=== PATIENT | male | born 1970 | race Caucasian/White ===

== ENCOUNTER 2020-02-24 15:13 | Inpatient (IN) | payer MEDICAID ==
[~2020-02-24] VITALS: Ht 193 cm; Wt 114.0 kg
[2020-02-24] MEDS ORDERED: CefTRIAXone 2gm/D5W 50ml 50 ML IV ONE (15:50)
[2020-02-24] MEDS ORDERED: vancomycin/NS 1 GM ADD-VANTAGE 250 ML IV ONE (16:00)
[2020-02-24 16:20] LABS: BASOPHILS # (AUTO) 0.1 X10'3 (0-0.2); BASOPHILS % (AUTO) 0.9 % (0-1); EOSINOPHILS % (AUTO) 0.2 % (0-6); HEMATOCRIT 44.2 % (42.0-52.0); LYMPHOCYTES # (AUTO) 1.4 X10'3 (1.1-4.8); LYMPHOCYTES % (AUTO) 15.4 % (21-51); MEAN CORPUSCULAR HEMOGLOBIN 31.9 PG (27.0-31.0); MEAN CORPUSCULAR VOLUME 93.8 FL (78-98); MEAN PLATELET VOLUME 10.9 FL (7.4-10.4); MONOCYTES # (AUTO) 1.3 X10'3 (0-0.9); MONOCYTES % (AUTO) 14.1 % (2-12); NEUTROPHILS # (AUTO) 6.2 X10'3 (1.8-7.7); NEUTROPHILS % (AUTO) 69.4 % (42-75); PLATELET COUNT 132 X10'3 (140-440); RED BLOOD COUNT 4.72 X10'6 (4.70-6.10); RED CELL DISTRIBUTION WIDTH 13.4 % (11.5-14.5)
[2020-02-24 16:35] LABS: ALANINE AMINOTRANSFERASE 12 U/L (12-78); ALBUMIN 3.9 G/DL (3.4-5.0); ALKALINE PHOSPHATASE 55 IU/L (46-116); ANION GAP 9 (8-16); ASPARTATE AMINO TRANSFERASE 17 U/L (10-37); BILIRUBIN,TOTAL 0.6 MG/DL (0.1-1.0); BLOOD UREA NITROGEN 11 MG/DL (7-18); BUN/CREATININE RATIO 10.5 (5.4-32.0); C-REACTIVE PROTEIN 1.83 MG/DL (0.0-0.5); CALCIUM 9.5 MG/DL (8.5-10.1); CHLORIDE 102 MMOL/L (99-107); CREATININE 1.05 MG/DL (0.60-1.10); GLUCOSE 133 MG/DL (70-104); SODIUM 138 MMOL/L (135-145); TOTAL CARBON DIOXIDE 27.2 MMOL/L (24-32); TOTAL PROTEIN 7.8 G/DL (6.4-8.2); eGFR 75 ML/MIN
[2020-02-24 16:55] LABS: LARGE PLATELETS FEW; PLATELET ESTIMATE DECREASED
[2020-02-24] MEDS ORDERED: LEVO137T2 PO (17:09)
[2020-02-24] MEDS ORDERED: GABA-532 PO ×3 (17:09)
[2020-02-24] MEDS ORDERED: DIVA-37 PO (17:09)
[2020-02-24] MEDS ORDERED: DIVA-76 PO (17:09)
[2020-02-24] MEDS ORDERED: METF-950 PO (17:09)
[2020-02-24] MEDS ORDERED: BUSP15TA3 PO (17:09)
[2020-02-24] MEDS ORDERED: ATOR20TA66 PO (17:09)
[2020-02-24] MEDS ORDERED: PALI6TAB6 PO (17:09)
[2020-02-24] MEDS ORDERED: insulin Lispro (HumaLOG) vial - multi-dose SQ SCH (17:55)
[2020-02-24] MEDS ORDERED: HYDROcodone/acetaminophen 5mg/325mg tablet PO PRN (17:55)
[2020-02-24] MEDS ORDERED: levoFLOXACIN 750MG TABLET PO ONE (17:55)
[2020-02-24] MEDS ORDERED: acetaminophen 325mg tablet PO PRN ×2 (17:55)
[2020-02-24] MEDS ORDERED: MESSAGE TO PHARMACY PO ONE (17:55)
[2020-02-24] MEDS ORDERED: HYDROcodone/acetaminophen 10/325mg tab PO PRN (17:55)
[2020-02-24] MEDS ORDERED: ondansetron/PF 4mg/2ml inj IV PRN (17:55)
[2020-02-24] MEDS ORDERED: dextrose ORAL solution 15 GM/59 ML bottle PO PRN ×2 (17:55)
[2020-02-24] MEDS ORDERED: potassium CL 10mEq/100ml bag 100 ML IV PRN ×2 (17:55)
[2020-02-24] MEDS ORDERED: magnesium 4gm in 100ml NS 100 ML IV PRN (17:55)
[2020-02-24] MEDS ORDERED: magnesium 2GM in 50ml NS 50 ML IV PRN (17:55)
[2020-02-24] MEDS ORDERED: glucagon, human recombinant 1mg kit SUBCUT PRN (17:55)
[2020-02-24] MEDS ORDERED: magnesium hydroxide 30ml (MOM) UD suspension PO PRN (17:55)
[2020-02-24] MEDS ORDERED: potassium Cl 20 mEq SR tablet PO PRN ×2 (17:55)
[2020-02-24] MEDS ORDERED: mag hydrox/Alum hydrox/simeth 30ml oral suspension PO PRN (17:55)
[2020-02-24] MEDS ORDERED: dextrose 50%-water 50ml dispensing syringe IV PRN ×2 (17:55)
--- NOTE | 2020-02-24 18:45 | NUR ---
Received report from Papo MENDEZ, patient came up to floor via wheelchair. Bed locked & low, call light within reach.
[2020-02-24 18:55] VITALS: BP 147/86
[2020-02-24] MEDS: nicotine 14mg patch - 24hr TD SCH (19:10)
[2020-02-24] MEDS: normal saline 1000ml 1,000 ML IV SCH (19:11)
--- NOTE | 2020-02-24 19:31 | NUR ---
Problems reprioritized. Patient report given, questions answered & plan of care reviewed with Prudence RN.
[2020-02-24] MEDS: K and/or MAG REPLACEMENT MC SCH (19:38)
[2020-02-24] MEDS: divalproex sodium 500mg tablet.DR PO SCH (20:14)
[2020-02-24] MEDS: gabapentin 300mg capsule PO SCH (20:15)
[2020-02-24] MEDS: busPIRone 15mg tablet PO SCH (20:15)
[2020-02-24] MEDS: atorvastatin 20mg tablet PO SCH (20:15)
[2020-02-24] MEDS: insulin glargine (Lantus) pen - multi-dose SQ SCH (21:00)
[2020-02-24 22:19] VITALS: BP 119/75
[2020-02-25] MEDS: VANCOMYCIN 1,500MG inj. 1,500 MG in normal saline 500ml IV soln 500 ML IV SCH ×3 (00:51→17:17)
[2020-02-25] MEDS: heparin, porcine 5000 units/ml vial SQ SCH ×3 (00:52→15:58)
[2020-02-25] MEDS: normal saline 1000ml 1,000 ML IV SCH ×2 (03:33→15:17)
[2020-02-25 05:13] LABS: BASOPHILS % (AUTO) 0.5 % (0-1); EOSINOPHILS % (AUTO) 0.5 % (0-6); HEMOGLOBIN 13.6 g/dl (14.0-17.9); LYMPHOCYTES # (AUTO) 2.1 X10'3 (1.1-4.8); LYMPHOCYTES % (AUTO) 32.1 % (21-51); MEAN CORPUSCULAR HEMOGLOBIN 31.5 PG (27.0-31.0); MEAN CORPUSCULAR HGB CONC 33.3 g/dL (33.0-36.5); MEAN CORPUSCULAR VOLUME 94.6 FL (78-98); MEAN PLATELET VOLUME 11.5 FL (7.4-10.4); MONOCYTES # (AUTO) 0.9 X10'3 (0-0.9); MONOCYTES % (AUTO) 12.8 % (2-12); NEUTROPHILS # (AUTO) 3.6 X10'3 (1.8-7.7); NEUTROPHILS % (AUTO) 54.1 % (42-75); PLATELET COUNT 125 X10'3 (140-440); RED BLOOD COUNT 4.33 X10'6 (4.70-6.10); RED CELL DISTRIBUTION WIDTH 13.7 % (11.5-14.5); WHITE BLOOD COUNT 6.7 X10'3 (4.5-11.0)
[2020-02-25 05:14] LABS: ALANINE AMINOTRANSFERASE 12 U/L (12-78); ALBUMIN/GLOBULIN RATIO 0.8 (1.1-1.5); ALKALINE PHOSPHATASE 47 IU/L (46-116); ANION GAP 6 (8-16); ASPARTATE AMINO TRANSFERASE 18 U/L (10-37); BILIRUBIN,TOTAL 0.7 MG/DL (0.1-1.0); BLOOD UREA NITROGEN 11 MG/DL (7-18); BUN/CREATININE RATIO 10.1 (5.4-32.0); CALCIUM 9.1 MG/DL (8.5-10.1); CHLORIDE 107 MMOL/L (99-107); CREATININE 1.09 MG/DL (0.60-1.10); GLUCOSE 100 MG/DL (70-104); MAGNESIUM 1.8 MG/DL (1.5-2.4); POTASSIUM 4.2 MMOL/L (3.5-5.1); SODIUM 142 MMOL/L (135-145); TOTAL CARBON DIOXIDE 28.7 MMOL/L (24-32); TOTAL PROTEIN 6.6 G/DL (6.4-8.2); eGFR 72 ML/MIN
[2020-02-25 06:00] VITALS: BP 135/77
--- NOTE | 2020-02-25 06:11 | NUR ---
Problems reprioritized. Patient report given, questions answered & plan of care reviewed with Cathie MENDEZ and Madhavi MENDEZ.
--- NOTE | 2020-02-25 06:32 | NUR ---
Patient in room [facility]TH[facility] 4011. I have received report from Verna Hernandez and had the opportunity to ask questions and assume patient care.
[2020-02-25 06:54] LABS: LARGE PLATELETS FEW; PLATELET ESTIMATE DECREASED
[2020-02-25] MEDS ORDERED: levoTHYROXINE 125mcg tablet PO SCH ×2 (07:00)
[2020-02-25] MEDS: levoTHYROXINE 25mcg tablet PO SCH (07:45)
[2020-02-25] MEDS: divalproex sodium 500mg tablet.DR PO SCH ×2 (07:45→20:37)
[2020-02-25] MEDS: levoTHYROXINE 112mcg tablet PO SCH (07:45)
[2020-02-25] MEDS: busPIRone 15mg tablet PO SCH ×3 (07:46→20:38)
[2020-02-25] MEDS: gabapentin 300mg capsule PO SCH ×3 (07:46→20:39)
[2020-02-25] MEDS: nicotine 14mg patch - 24hr TD SCH (07:47)
[2020-02-25] MEDS: K and/or MAG REPLACEMENT MC SCH ×2 (08:00→20:00)
[2020-02-25] MEDS ORDERED: CefTRIAXone 2gm/D5W 50ml 50 ML IV SCH (08:00)
[2020-02-25] MEDS: PALIPERIDONE 3 MG TAB.ER.24 PO SCH (08:42)
[2020-02-25 10:00] VITALS: BP 119/74
[2020-02-25] MEDS ORDERED: levoFLOXACIN 750MG TABLET PO SCH (11:00)
[2020-02-25] MEDS: piperacillin/tazo 3.375gm/50ml 50 ML IV SCH (15:09)
--- NOTE | 2020-02-25 18:00 | NUR ---
RECEIVED REPORT FROM KEIRY MENDEZ AND ASSUMED PATIENT CARE
--- NOTE | 2020-02-25 18:00 | NUR ---
Patient in room ORTH[facility] 4011. I have received report from Elke MENDEZ & Zeenat MENDEZ and had the opportunity to ask questions and assume patient care.
--- NOTE | 2020-02-25 18:19 | NUR ---
Problems reprioritized. Patient report given, questions answered & plan of care reviewed with Aparna Elena RN.
[2020-02-25 19:28] VITALS: BP 124/82
[2020-02-25] MEDS: atorvastatin 20mg tablet PO SCH (20:38)
[2020-02-25] MEDS: insulin glargine (Lantus) pen - multi-dose SQ SCH (21:00)
[2020-02-26] MEDS: piperacillin/tazo 3.375gm/50ml 50 ML IV SCH ×2 (00:14→07:34)
[2020-02-26] MEDS: heparin, porcine 5000 units/ml vial SQ SCH ×2 (00:15→07:25)
[2020-02-26] MEDS ORDERED: VANCOMYCIN LEVEL IV ONE (00:30)
[2020-02-26 01:12] VITALS: BP 127/78
[2020-02-26 04:18] LABS: ALANINE AMINOTRANSFERASE 8 U/L (12-78); ALBUMIN 3.2 G/DL (3.4-5.0); ALBUMIN/GLOBULIN RATIO 0.9 (1.1-1.5); ALKALINE PHOSPHATASE 48 IU/L (46-116); ANION GAP 8 (8-16); ASPARTATE AMINO TRANSFERASE 24 U/L (10-37); BILIRUBIN,TOTAL 0.5 MG/DL (0.1-1.0); BLOOD UREA NITROGEN 12 MG/DL (7-18); BUN/CREATININE RATIO 11.7 (5.4-32.0); CALCIUM 9.2 MG/DL (8.5-10.1); CHLORIDE 108 MMOL/L (99-107); CREATININE 1.03 MG/DL (0.60-1.10); GLUCOSE 90 MG/DL (70-104); MAGNESIUM 1.8 MG/DL (1.5-2.4); POTASSIUM 3.8 MMOL/L (3.5-5.1); SODIUM 141 MMOL/L (135-145); TOTAL CARBON DIOXIDE 25.3 MMOL/L (24-32); TOTAL PROTEIN 6.8 G/DL (6.4-8.2); VANCOMYCIN,TROUGH 17.2 UG/ML (6.0-14.0); eGFR 77 ML/MIN
[2020-02-26] MEDS: VANCOMYCIN 1,500MG inj. 1,500 MG in normal saline 500ml IV soln 500 ML IV SCH ×2 (04:29→11:40)
[2020-02-26 06:00] VITALS: BP 136/77
--- NOTE | 2020-02-26 06:28 | NUR ---
Patient in room [facility]TH[facility] 4011. I have received report from Cornel MENDEZ and had the opportunity to ask questions and assume patient care.
[2020-02-26 06:57] LABS: BASOPHILS % (AUTO) 0.5 % (0-1); EOSINOPHILS % (AUTO) 0.9 % (0-6); HEMATOCRIT 41.6 % (42.0-52.0); HEMOGLOBIN 14.1 g/dl (14.0-17.9); LYMPHOCYTES # (AUTO) 1.5 X10'3 (1.1-4.8); LYMPHOCYTES % (AUTO) 35.9 % (21-51); MEAN CORPUSCULAR HEMOGLOBIN 31.9 PG (27.0-31.0); MEAN CORPUSCULAR HGB CONC 33.9 g/dL (33.0-36.5); MEAN CORPUSCULAR VOLUME 94.1 FL (78-98); MEAN PLATELET VOLUME 11.6 FL (7.4-10.4); MONOCYTES # (AUTO) 0.6 X10'3 (0-0.9); MONOCYTES % (AUTO) 12.9 % (2-12); NEUTROPHILS # (AUTO) 2.1 X10'3 (1.8-7.7); NEUTROPHILS % (AUTO) 49.8 % (42-75); PLATELET COUNT 116 X10'3 (140-440); RED BLOOD COUNT 4.42 X10'6 (4.70-6.10); RED CELL DISTRIBUTION WIDTH 13.7 % (11.5-14.5); WHITE BLOOD COUNT 4.3 X10'3 (4.5-11.0)
[2020-02-26] MEDS: normal saline 1000ml 1,000 ML IV SCH (07:02)
[2020-02-26] MEDS: gabapentin 300mg capsule PO SCH ×2 (07:25→12:57)
[2020-02-26] MEDS: levoTHYROXINE 25mcg tablet PO SCH (07:25)
[2020-02-26] MEDS: divalproex sodium 500mg tablet.DR PO SCH (07:26)
[2020-02-26] MEDS: PALIPERIDONE 3 MG TAB.ER.24 PO SCH (07:26)
[2020-02-26] MEDS: levoTHYROXINE 112mcg tablet PO SCH (07:26)
[2020-02-26] MEDS: busPIRone 15mg tablet PO SCH (07:26)
[2020-02-26] MEDS: nicotine 14mg patch - 24hr TD SCH (07:27)
[2020-02-26] MEDS: K and/or MAG REPLACEMENT MC SCH (08:00)
[2020-02-26] MEDS ORDERED: GADOTERATE MEGLUMINE 7.5 MMOL/15 ML VIAL IV ONE (08:46)
[2020-02-26 10:00] VITALS: BP 136/84
[2020-02-26] MEDS ORDERED: LINE600T12 PO (10:41)
--- NOTE | 2020-02-26 12:07 | NUR ---
Patient blood sugar 78 gave orange juice will re check
--- NOTE | 2020-02-26 15:08 | NUR ---
Written and verbal instruction given to patient and caregiver/ regarding interactions between new RX Zyvox and patients routine home med buspar. Patient was instructed to discontinue buspar until zyvox regimen is complete. Addendum: 02/26/20 at 1511 by Manuel Bishop RN Amended: Links added.
== END 2020-02-26 14:30 | disposition home or self-care (01) | DRG 384 ==
LOC: ER 15:14 → ED HOLD 17:51 → UNDOADMIN 17:57 → ED HOLD 17:57 → EDBEDREQ 18:37 → ED HOLD 18:53 → ORTHO 4S 18:53
PROVIDERS: ADMIT Family Medicine; ATTEND Family Medicine
PROC: 0HCNXZZ Extirpation of Matter from Left Foot Skin, External Approach (ICD-10-PCS; principal; 2020-02-24)
PROC: BQ3MYZZ Magnetic Resonance Imaging (MRI) of Left Foot using Other Contrast (ICD-10-PCS; 2020-02-24)
DX: S91.122A Laceration with foreign body of left great toe without damage to nail, initial encounter (principal); E11.42 Type 2 diabetes mellitus with diabetic polyneuropathy; L03.032 Cellulitis of left toe; E03.9 Hypothyroidism, unspecified; W25.XXXA Contact with sharp glass, initial encounter; E78.5 Hyperlipidemia, unspecified; L03.116 Cellulitis of left lower limb; F17.210 Nicotine dependence, cigarettes, uncomplicated; Z87.820 Personal history of traumatic brain injury; Z79.899 Other long term (current) drug therapy; Y93.89 Activity, other specified; Y92.89 Other specified places as the place of occurrence of the external cause; Y99.8 Other external cause status
CPT/HCPCS: 36415; 73660; 73720; 80053; 80202; 82948; 83036; 83605; 83735; 85025; 85651; 86140; 87040; 87081; 96365; 99285; A9575; G0378; J0696; J1644; J1815; J2543; J3370; J7030; J7040

== ENCOUNTER 2020-02-29 11:20 | Outpatient (CLI) | payer MEDICAID ==
[~2020-02-29 11:20] MED LIST: ATOR20TA66 PO; DIVA-37 PO; DIVA-76 PO; GABA-532 PO; LEVO137T2 PO; LINE600T12 PO; METF-950 PO; PALI6TAB6 PO
== END 2020-02-29 12:24 | disposition home or self-care (01) ==
LOC: WOUND CARE 11:20
PROVIDERS: ATTEND Nurse Practitioner
DX: E11.621 Type 2 diabetes mellitus with foot ulcer (principal); L97.521 Non-pressure chronic ulcer of other part of left foot limited to breakdown of skin; E11.51 Type 2 diabetes mellitus with diabetic peripheral angiopathy without gangrene; E11.42 Type 2 diabetes mellitus with diabetic polyneuropathy; E78.5 Hyperlipidemia, unspecified; E07.9 Disorder of thyroid, unspecified; E03.9 Hypothyroidism, unspecified; F17.229 Nicotine dependence, chewing tobacco, with unspecified nicotine-induced disorders; F32.9 Major depressive disorder, single episode, unspecified; Z79.899 Other long term (current) drug therapy
CPT/HCPCS: 36416; 82948; G0463

== ENCOUNTER 2020-03-05 09:00 | Outpatient (CLI) | payer MEDICAID ==
[2020-03-05] MEDS ORDERED: LIDOcaine 2% 5ml jelly ONE (09:20)
== END 2020-03-05 10:29 | disposition home or self-care (01) ==
LOC: WOUND CARE 09:00 → EDSTATUS 09:00 → WOUND CARE 10:29
PROVIDERS: ATTEND Nurse Practitioner Family
DX: E11.621 Type 2 diabetes mellitus with foot ulcer (principal); L97.521 Non-pressure chronic ulcer of other part of left foot limited to breakdown of skin; E11.51 Type 2 diabetes mellitus with diabetic peripheral angiopathy without gangrene; E11.42 Type 2 diabetes mellitus with diabetic polyneuropathy; E78.5 Hyperlipidemia, unspecified; E07.9 Disorder of thyroid, unspecified; E03.9 Hypothyroidism, unspecified; F32.9 Major depressive disorder, single episode, unspecified; F17.290 Nicotine dependence, other tobacco product, uncomplicated; Z79.899 Other long term (current) drug therapy
CPT/HCPCS: 82948; 93922; 93925; G0463

== ENCOUNTER 2020-03-08 09:05 | Day surgery (SDC) | payer MEDICAID | END 2020-03-08 09:43 | disposition home or self-care (01) | LOC: WOUND CARE 09:05 | PROVIDERS: ATTEND Nurse Practitioner | DX: E11.621 Type 2 diabetes mellitus with foot ulcer (principal); L97.522 Non-pressure chronic ulcer of other part of left foot with fat layer exposed; E11.51 Type 2 diabetes mellitus with diabetic peripheral angiopathy without gangrene; E11.42 Type 2 diabetes mellitus with diabetic polyneuropathy; E78.5 Hyperlipidemia, unspecified; E07.9 Disorder of thyroid, unspecified; E03.9 Hypothyroidism, unspecified; F32.9 Major depressive disorder, single episode, unspecified; F17.290 Nicotine dependence, other tobacco product, uncomplicated; Z79.899 Other long term (current) drug therapy | CPT/HCPCS: 36416; 82948; 97597 ==

== ENCOUNTER 2020-03-15 09:16 | Day surgery (SDC) | payer MEDICAID | END 2020-03-15 09:57 | disposition home or self-care (01) | LOC: WOUND CARE 09:16 | PROVIDERS: ATTEND Nurse Practitioner | DX: E11.621 Type 2 diabetes mellitus with foot ulcer (principal); L97.522 Non-pressure chronic ulcer of other part of left foot with fat layer exposed; E11.51 Type 2 diabetes mellitus with diabetic peripheral angiopathy without gangrene; E11.42 Type 2 diabetes mellitus with diabetic polyneuropathy; E78.5 Hyperlipidemia, unspecified; E07.9 Disorder of thyroid, unspecified; E03.9 Hypothyroidism, unspecified; F32.9 Major depressive disorder, single episode, unspecified; F17.290 Nicotine dependence, other tobacco product, uncomplicated; Z79.899 Other long term (current) drug therapy | CPT/HCPCS: 97597 ==

== ENCOUNTER 2020-03-22 09:10 | Day surgery (SDC) | payer MEDICAID ==
[2020-03-22] MEDS ORDERED: LIDOcaine 2% 5ml jelly ONE (09:15)
== END 2020-03-22 09:52 | disposition home or self-care (01) ==
LOC: WOUND CARE 09:10
PROVIDERS: ATTEND Nurse Practitioner
DX: E11.621 Type 2 diabetes mellitus with foot ulcer (principal); L97.522 Non-pressure chronic ulcer of other part of left foot with fat layer exposed; E11.51 Type 2 diabetes mellitus with diabetic peripheral angiopathy without gangrene; E11.42 Type 2 diabetes mellitus with diabetic polyneuropathy; E78.5 Hyperlipidemia, unspecified; E07.9 Disorder of thyroid, unspecified; E03.9 Hypothyroidism, unspecified; G90.09 Other idiopathic peripheral autonomic neuropathy; F32.9 Major depressive disorder, single episode, unspecified; F17.290 Nicotine dependence, other tobacco product, uncomplicated; Z79.899 Other long term (current) drug therapy
CPT/HCPCS: 36416; 82948; 97597

== ENCOUNTER 2020-03-29 09:07 | Outpatient (CLI) | payer MEDICAID ==
[~2020-03-29 09:07] MED LIST changes: -LINE600T12 PO
== END 2020-03-29 09:45 | disposition home or self-care (01) ==
LOC: WOUND CARE 09:07 → EDSTATUS 09:20 → WOUND CARE 09:45
PROVIDERS: ATTEND Nurse Practitioner
DX: E11.621 Type 2 diabetes mellitus with foot ulcer (principal); L97.522 Non-pressure chronic ulcer of other part of left foot with fat layer exposed; E11.51 Type 2 diabetes mellitus with diabetic peripheral angiopathy without gangrene; E11.42 Type 2 diabetes mellitus with diabetic polyneuropathy; E78.5 Hyperlipidemia, unspecified; E07.9 Disorder of thyroid, unspecified; E03.9 Hypothyroidism, unspecified; G90.09 Other idiopathic peripheral autonomic neuropathy; F32.9 Major depressive disorder, single episode, unspecified; F17.290 Nicotine dependence, other tobacco product, uncomplicated; Z79.899 Other long term (current) drug therapy
CPT/HCPCS: G0463

== ENCOUNTER 2020-09-03 16:55 | Emergency (ER) | payer MEDICAID ==
[~2020-09-03] VITALS: Ht 190.5 cm; Wt 127.0 kg
[2020-09-03 17:05] VITALS: BP 142/94
[2020-09-03 18:59] LABS: BASOPHILS % (AUTO) 0.6 % (0-1); EOSINOPHILS # (AUTO) 0.1 X10'3 (0-0.9); HEMATOCRIT 45.1 % (42.0-52.0); HEMOGLOBIN 15.4 g/dl (14.0-17.9); LYMPHOCYTES % (AUTO) 28.1 % (21-51); MEAN CORPUSCULAR HEMOGLOBIN 32.9 PG (27.0-31.0); MEAN CORPUSCULAR HGB CONC 34.2 g/dL (33.0-36.5); MONOCYTES # (AUTO) 0.7 X10'3 (0-0.9); MONOCYTES % (AUTO) 10.6 % (2-12); NEUTROPHILS # (AUTO) 4.1 X10'3 (1.8-7.7); NEUTROPHILS % (AUTO) 58.7 % (42-75); PLATELET COUNT 161 X10'3 (140-440); RED BLOOD COUNT 4.69 X10'6 (4.70-6.10); RED CELL DISTRIBUTION WIDTH 14.1 % (11.5-14.5)
[2020-09-03 19:09] LABS: D-DIMER 0.35 MG/L FEU (0-0.50)
[2020-09-03 19:27] LABS: ALANINE AMINOTRANSFERASE 20 U/L (12-78); ALBUMIN 4.3 G/DL (3.4-5.0); ALKALINE PHOSPHATASE 65 IU/L (46-116); ANION GAP 8 (8-16); ASPARTATE AMINO TRANSFERASE 15 U/L (10-37); BILIRUBIN,TOTAL 0.7 MG/DL (0.1-1.0); BLOOD UREA NITROGEN 9 MG/DL (7-18); BUN/CREATININE RATIO 8.3 (5.4-32.0); CHLORIDE 103 MMOL/L (99-107); CREATININE 1.09 MG/DL (0.60-1.10); GLUCOSE 117 MG/DL (70-104); POTASSIUM 4.1 MMOL/L (3.5-5.1); SODIUM 141 MMOL/L (135-145); TOTAL CARBON DIOXIDE 29.7 MMOL/L (24-32); TOTAL PROTEIN 8.6 G/DL (6.4-8.2); eGFR 72 ML/MIN
[2020-09-03] MEDS ORDERED: POTA10TA19 PO (19:40)
[2020-09-03] MEDS ORDERED: FURO-150 PO (19:40)
[2020-09-03] MEDS ORDERED: CEPH250T PO (19:40)
== END 2020-09-03 20:42 | disposition home or self-care (01) ==
LOC: ER 16:56
DX: L03.116 Cellulitis of left lower limb (principal); L03.115 Cellulitis of right lower limb; I87.8 Other specified disorders of veins; M79.89 Other specified soft tissue disorders; M79.671 Pain in right foot; R20.0 Anesthesia of skin; E11.42 Type 2 diabetes mellitus with diabetic polyneuropathy; F17.200 Nicotine dependence, unspecified, uncomplicated; Z79.2 Long term (current) use of antibiotics; Z79.899 Other long term (current) drug therapy
CPT/HCPCS: 36415; 71045; 80053; 82948; 83880; 84484; 85025; 85379; 93005; 93970; 99285